=== PATIENT | female | born 1935 | race Caucasian/White ===

== ENCOUNTER 2019-11-23 03:39 | Emergency (ER) | payer MEDICARE ==
[~2019-11-23] VITALS: Ht 167.6 cm; Wt 81.6 kg
[2019-11-23] MEDS ORDERED: EPINEPHrine JECT 0.1 MG/ML SYR IVP ONE (03:40)
[2019-11-23] MEDS ORDERED: SODIUM BICARBONATE 8.4% JECT 50 MEQ/50 ML SYRINGE IVP ONE (03:40)
[2019-11-23] MEDS ORDERED: NORMAL SALINE 10 ML VIAL IVP ONE (03:40)
[2019-11-23] MEDS ORDERED: NS 1000 ML IV.SOLN IV ONE (03:40)
[2019-11-23] MEDS ORDERED: CALCIUM CHLORIDE 1 GM/10 ML DISP.SYRIN (14 mEq Ca++/SYR) IV ONE (03:40)
[2019-11-23 05:55] VITALS: BP_SYST 0
== END 2019-11-23 05:55 | disposition expired ==
LOC: SED 03:39
DX: I46.9 Cardiac arrest, cause unspecified (principal); R06.02 Shortness of breath; E11.9 Type 2 diabetes mellitus without complications
CPT/HCPCS: 31500; 92950; 99285; J0171; J7030; 94002